=== PATIENT | male | born 1955 | race Hispanic/Latino ===

== ENCOUNTER 2017-07-30 06:45 | Day surgery (SDC) | payer OTHER ==
[2017-07-28 10:19] VITALS: BP 134/84
[2017-07-28 10:34] LABS: EOSINOPHILS % (AUTO) 8.1 % (0.0-8.0); HEMATOCRIT 41.3 % (42-54); LYMPHOCYTES % (AUTO) 26.5 % (21.0-51.0); MEAN CORPUSCULAR HEMOGLOBIN 31.1 pg (27.0-33.0); MEAN CORPUSCULAR HGB CONC 34.5 g/dL (32.0-36.0); MEAN CORPUSCULAR VOLUME 90.3 fL (79-99); MONOCYTES % (AUTO) 7.5 % (3.0-13.0); NEUTROPHILS % (AUTO) 56.9 % (40.0-77.0); PLATELET COUNT (AUTO) 273 K/uL (130-400); RED BLOOD CELL COUNT(AUTO) 4.58 MIL/uL (4.50-6.20); RED CELL DISTRIBUTION WIDTH 13.3 % (11.0-15.5); WHITE BLOOD COUNT (AUTO) 7.1 K/uL (4.8-10.8)
[2017-07-28 10:43] LABS: CREATININE 1.4 mg/dL (0.5-1.5)
[2017-07-28 10:47] LABS: INR 0.98 (0.85-1.15); PARTIAL THROMBOPLASTIN TIME 28.2 SEC (26.3-35.5); PROTHROMBIN TIME 10.3 SEC (9.6-11.6)
[~2017-07-30] VITALS: Ht 176.5 cm; Wt 95.6 kg
[2017-07-30] VITALS (9 sets, daily range): BP systolic 109–156; BP diastolic 80–98
[~2017-07-30 06:45] MED LIST: AMLO10TA2 PO; ATOR40TA71 PO; CARV25TA PO; LOSA1TAB42 PO
[2017-07-30] MEDS ORDERED: CEFAZOLIN 1GM / D5W 50ML 150 ML ONE (08:53)
[2017-07-30] MEDS ORDERED: LIDOCAINE HCL 1% MDV 50ML VIAL ONE (08:53)
[2017-07-30] MEDS ORDERED: BUPIVACAINE/PF 0.25% 30ML VIAL IJ ONE (08:53)
[2017-07-30] MEDS ORDERED: MORPHINE SULFATE 2 MG/ML 1ML SYG ONE (09:27)
[2017-07-30] MEDS ORDERED: ACETAMINOPHEN 325 MG TAB PO PRN ×2 (10:00)
[2017-07-30] MEDS ORDERED: ONDANSETRON HCL 4 MG/2 ML VIAL IV PRN (10:00)
== END 2017-07-30 14:13 | disposition home or self-care (01) ==
LOC: DAH 06:45
PROVIDERS: ATTEND Internal Medicine Cardiovascular Disease
DX: R55 Syncope and collapse (principal); I48.91 Unspecified atrial fibrillation; I10 Essential (primary) hypertension; E78.00 Pure hypercholesterolemia, unspecified; G47.33 Obstructive sleep apnea (adult) (pediatric); Z86.73 Personal history of transient ischemic attack (TIA), and cerebral infarction without residual deficits
CPT/HCPCS: 33282; 36415; 71045; 80048; 85025; 85610; 85730; 93005; C1764; J0690; J3490 ×2; 99152; 99153